=== PATIENT | female | born 1930 | race Caucasian/White ===

== ENCOUNTER → 2017-11-03 | Outpatient (CLI) | payer OTHER ==
[~2017-11-03] MED LIST: ASCO1ER; ASCO1ER PO; ASCO500 PO; ASPI81CH; ASPI81EC PO; ATOR10; ATOR10 MT; ATOR20 PO; AZOR; Advil Pm Liqui1 EACH MT; BENAML20/5; BENTYL10 MG MT; Bactrim Ds Tab1 EACH PO; CALCAVITD PO; CALMAGZIN PO; CYAN1000; CYAN1000 PO; DICY20 PO; DONE10 MT; FISH1000 PO; FLAX; FLAX PO; GLUCHON PO; HYOS.125; IBUP200 PO; IBUP400; IBUP400 PO; LANS30EC; LEVSOD25; LEVSOD50; LEVSOD50 PO; LISI20; LOVA20; OMEG1CAP30 MT; OMEP10ER PO; OMEP20ER PO; SIMV10 PO; TOCO400; TOCO400 PO; TOLT4 PO; TRIHYD253B PO; UBID100 PO; VERA120ERB; VERA240ERB PO; [UNRECOGNIZED DRUG - OTHER]
[2017-11-03 14:36] LABS: Appearance, Urine Turbid (Clear); Bilirubin, Urine Neg (Neg); Blood, Urine 4+ (Neg); Color, Urine Yellow (P-Yellow); Glucose Qualitative, Urine Neg (Neg); Ketones, Urine Neg (Neg); Leukocyte Esterase, Urine 3+ (Neg); Nitrite, Urine Neg (Neg); Protein, Urine 2+ (Neg); Specific Gravity, Urine 1.025 (1.003-1.022); Urobilinogen, Urine NORM (Normal)
[2017-11-03 14:51] LABS: Squamous Epithelial Cells Many /hpf (Few); White Blood Cells, Urine TNTC /hpf (0-5)
[2017-11-03 14:52] LABS: Bacteria Mod /hpf; Red Blood Cells, Urine 0-2 /hpf (0-2)
== END | disposition home or self-care (01) ==
LOC: LAB 14:24
DX: N39.0 Urinary tract infection, site not specified (principal)
CPT/HCPCS: 81001; 87086

== ENCOUNTER → 2018-11-16 | Outpatient (CLI) | payer OTHER ==
[2018-11-16 11:05] LABS: Source, Urine Voided
[2018-11-16 11:13] LABS: Bilirubin, Urine Neg (Neg); Blood, Urine 1+ (Neg); Glucose Qualitative, Urine Neg (Neg); Ketones, Urine Neg (Neg); Leukocyte Esterase, Urine 3+ (Neg); Nitrite, Urine Pos (Neg); Protein, Urine Neg (Neg); Urobilinogen, Urine NORM (Normal)
[2018-11-16 11:49] LABS: Appearance, Urine Clear (Clear); Color, Urine Pale Yellow (P-Yellow)
[2018-11-16 11:50] LABS: Bacteria Many /hpf; Red Blood Cells, Urine 0-2 /hpf (0-2); Squamous Epithelial Cells Few /hpf (Few); White Blood Cells, Urine 25-50 /hpf (0-5)
== END | disposition home or self-care (01) ==
LOC: LAB SHORT 11:04 → LAB 11:04
DX: N39.0 Urinary tract infection, site not specified (principal)
CPT/HCPCS: 81001; 87077; 87086; 87186